=== PATIENT | male | born 1950 | race Hispanic/Latino ===

== ENCOUNTER 2017-01-26 12:03 | Day surgery (SDC) | payer MEDICARE, OTHER ==
[~2017-01-26] VITALS: Ht 170.2 cm; Wt 93.0 kg
[~2017-01-26 12:03] MED LIST: ASA325 PO; FLUT12AE8 IH; IBUP800T28 PO; LIP40 PO; LOP50 PO; PRA20 PO; ProAirHFA INH; Sodium Chloride LOK Flush 10 mL Syringe IV PRN; fentaNYL-PF 50 mCg/mL 2 mL Inj IVPUSH PRN
[2017-01-26 12:30] VITALS: BP 141/94; PULSE 72; RESP 16; O2SAT 98
[2017-01-26] MEDS: 0.9% Sodium Chloride 1,000 ML IV PRN ×2 (12:41→13:54)
[2017-01-26 14:15] VITALS: BP 147/92; PULSE 73; RESP 16; O2SAT 92
[2017-01-26 14:25] VITALS: BP 145/89; PULSE 72; RESP 16; O2SAT 93
--- NOTE | 2017-01-26 14:26 | ENDO ---
[address] [address] ENDOSCOPY PROCEDURE PATIENT: VERITO SAUER : 1950 MR#: [id number] ADMIT: 01/26/2017 JOB ID: [id number] DATE: 01/26/2017 PROCEDURE: Colonoscopy with hot snare polypectomy. INDICATIONS: A 66-year-old male with a personal history of colon polyps returning for surveillance. EQUIPMENT: PCF H 180 AL. SEDATION: 1. 5 mg Versed. 2. 100 mcg fentanyl. COMPLICATIONS: None identified. BOWEL PREPARATION: Fair, adequate examination. PROCEDURAL INFORMATION: After the risks and benefits were explained, written and verbal informed consent was obtained. The patient was brought into the endoscopy suite and placed into the left lateral decubitus position. Sedation was achieved using the above-stated medications with the addition of oxygen via nasal cannula. A digital rectal examination was accomplished. Some moderate internal and external, nonbleeding, nonthrombosed hemorrhoids were noted. The scope was introduced into the rectum and advanced under direct visualization to the level of the cecum, as identified by the appendiceal orifice and ileocecal valve. The scope was slowly withdrawn to carefully examine the mucosa for any defects or lesions. Retroflexed views were accomplished in the rectum. The colon was decompressed. The scope removed from the patient who tolerated the procedure well. FINDINGS: Moderate diverticulosis was seen through the sigmoid colon. In the ascending colon, there was a sessile perhaps 6 mm polyp removed with hot snare. Retroflexed views from within the rectum were unremarkable. No other significant pathology was identified throughout. ENDOSCOPIC DIAGNOSES: 1. Colon polyp. 2. Diverticulosis. 3. Hemorrhoids. RECOMMENDATIONS: 1. Await histopathology. 2. Repeat colonoscopy in five years.
[2017-01-26 14:35] VITALS: BP 139/85; PULSE 69; RESP 16; O2SAT 93
--- NOTE | 2017-01-28 14:22 | PATH ---
SURGICAL PATHOLOGY Attending Physician:Pam Palacios CASE STATUS: Signed Out PATIENT NAME: VREITO SAUER PID: [id number] : 1950 DATE COLLECTED:01/26/2017 00:00 SPECIMEN: Colon, Biopsy CLINICAL HISTORY: 1). ASCENDING POLYP FINAL DIAGNOSIS: 1.ASCENDING COLON POLYP: TUBULAR ADENOMA. ICD10 CODE D12.2 GROSS DESCRIPTION: The specimen is received in one formalin filled container labeled with the patient's name, sublabeled "ascending polyp" and consists of a 0.4 x 0.3 x 0.2 CM portion of tissue which is entirely submitted in one cassette. 01/27/2017 DAC MICRO DESCRIPTION: See diagnosis. ICD-9 CODES: CPT CODES: 1: 33351 Electronically Signed Out Sharif Sinha MD [facility] Pathology [facility] [address] [facility], [place] [address] Technical component performed at [facility], [address] [place] [address] [address], [place], [address]
== END 2017-01-26 23:59 | disposition home or self-care (01) ==
LOC: END 12:03
PROVIDERS: ATTEND Internal Medicine Gastroenterology
DX: Z12.11 Encounter for screening for malignant neoplasm of colon (principal); Z86.010 Personal history of colon polyps; D12.2 Benign neoplasm of ascending colon; K57.30 Diverticulosis of large intestine without perforation or abscess without bleeding; K64.9 Unspecified hemorrhoids; I10 Essential (primary) hypertension; E78.5 Hyperlipidemia, unspecified; I25.10 Atherosclerotic heart disease of native coronary artery without angina pectoris; J30.9 Allergic rhinitis, unspecified; K21.9 Gastro-esophageal reflux disease without esophagitis; Z79.82 Long term (current) use of aspirin
CPT/HCPCS: 45385; 88305; 99153; G0500; J2250; J3010; J7030